=== PATIENT | male | born 1970 | race Caucasian/White ===

== ENCOUNTER 2023-01-14 14:02 | Emergency (ER) | payer OTHER, SELFPAY ==
[2023-01-14 14:09] VITALS: BP 163/98; PULSE 86; RESP 16; TEMP 35.8; O2SAT 98
--- NOTE | 2023-01-14 15:30 | ED.NURSE ---
Pt not in triage at time of room assignment. Unknown where patient went.
== END 2023-01-14 16:01 | disposition left against medical advice (07) ==
LOC: ED 15:57
DX: Z53.21 Procedure and treatment not carried out due to patient leaving prior to being seen by health care provider (principal)
CPT/HCPCS: 93005

== ENCOUNTER 2025-08-13 11:59 | Emergency (ER) | payer OTHER, SELFPAY ==
--- OUTSIDE RECORDS SUMMARY | 2025-08-13 12:06 | XMS_ITS | Encounter Summary ---
Author Organization [facility] Address [address] [place] [address]. [place] [address] Care Team Providers Care Broadloom Weaver Name Role Phone Hernandez Espinoza MD Unavailable Iker Stuart MD Unavailable Hernandez Espinoza MD Primary Care Provider Reason for Visit * Reason Onset Date Comments Refill Request 03/06/2024 Encounter Details Date Type Department Care Team (Late st Contact Info) Description 03/06/2024 MyC Refill [facility] [id number] [place] [address] Hernandez Espinoza MD [address] [place] [address] Refill Request Social History Tobacco Use Types Packs/Day Years Used Date Smoking Tobacco: Never Smokeless Tobacco: Never Alcohol Use Standard Drinks/Week Comments Yes 0 (1 standard drink = 0.6 oz pur e alcohol) occ Social Connection and Isolation Panel [NHANES] A nswer Date Recorded In a typical week, how many times do you talk on the phone with family, friends, or neighbors? Once a week 03/15/2023 How often do you get together with friends or re latives? Never 03/15/2023 How often do you attend congregation or methodist serv ices? Never 03/15/2023 Do you belong to any clubs o r organizations such as congregation groups, unions, fraternal or athletic groups, or school groups? No 03/15/2023 Attends Club or Organization Meetings Not on amie e 03/15/2023 Are you , , di vorced, , never , or living with a partner? 03/15/2023 AUDIT-C Answer Date Recorded Q1: How often do you have a drink containing alcohol? Never 03/15/2023 Q2: How many drinks containi ng alcohol do you have on a typical day when you are drinking? Patient does not drink Q3: How often do you have si x or more drinks on one occasion? Never 03/15/2023 Overall Financial Resource Strain (CARDIA) Answe r Date Recorded How hard is it for you to pa y for the very basics like food, housing, medical care, and heating? Not hard at all 03/15/2023 PHQ-2 Answer Date Recorded PHQ-2 Score 0 03/20/2023 [facility] Occupat ional [facility] - Occupational Stress Questionnaire Answer Date Recorded Do you feel stress - tense, restless, nervous, or anxious, or unable to sleep at night because your mind is troubled all the time - these days? Only a little 03/15/2023 Exercise Vital Sign Answer Date Recorde d On average, how many days pe r week do you engage in moderate to strenuous exercise (like a brisk walk)? 0 days 03/15/2023 On average, how many minutes do you engage in exercise at this level? 0 min 03/15/2023 Hunger Vital Sign Answer Date Recorded Within the past 12 months, y ou worried that your food would run out before you got the money to buy more. Never true 03/15/20 23 Within the past 12 months, t he food you bought just didn't last and you didn't have money to get more. Never true 03/15/2023 PRAPARE - Transportation Answer Date Re corded In the past 12 months, has l ack of transportation kept you from medical appointments or from getting medications? No 02/18 In the past 12 months, has l ack of transportation kept you from meetings, work, or from getting things needed for daily living? No 03/15/2023 Housing Stability Vital Sign Answer Indra e Recorded In the last 12 months, was t here a time when you were not able to pay the mortgage or rent on time? No 03/15/2023 Number of Places Lived in the Last Year Not on f ile 03/15/2023 In the last 12 months, was t here a time when you did not have a steady place to sleep or slept in a fdc (including now)? No 03/15/2023 Adolescent Education Answer Date Record ed Getting School Help Needed Not on file 08/11 Sex and Gender Information Value Date Recorded Sex Assigned at Not on file Legal Sex Male 8:38 AM CDT Gender Identity Not on file Sexual Orientation Not on file documented as of this encounter Miscellaneous Notes * Telephone Encounter - Tana Mendez RN - 03/07/2024 10:20 AM CDT Patient has requested the refill too soon. documented in this encounter Plan of Treatment Not on file documented as of this encounter Visit Diagnoses Diagnosis Primary insomnia Persistent disorder of initiating or maintaining sleep documented in this encounter Care Teams Broadloom Weaver Relationship Specialty [place] [address] [place] [address] PCP - General Family Medicine 01/18/23 [place] [address] [place] [address] Assigned PCP 02/02/22 [place] [address] [place] [address] Assigned Musculoskeletal Provider 10/14/22 04/09/24 documented as of this encounter
[2025-08-13 12:07] VITALS: BP 135/89; PULSE 87; RESP 18; TEMP 36.1; O2SAT 95; BMI 40.4
--- OUTSIDE RECORDS SUMMARY | 2025-08-13 12:07 | XMS_ITS | Encounter Summary ---
Author Organization [facility] Address [address] [place] [address]. [place] [address] Care Team Providers Care Quantitative Analyst Name Role Phone Clinic - [facility] Primary Ca re Provider Hernandez Espinoza MD Unavailable Laurie Little PA-C Unavailable Molly Bailey MD Unavailable Iker Stuart MD Unavailable Hernandez Espinoza MD Primary Care Provider Encounter Details Date Type Department Care Team (Late st Contact Info) Description 06/12/2022 [facility] [address] [address] Albert Martinez, [place] Social History Tobacco Use Types Packs/Day Years Used Date Smoking Tobacco: Never Smokeless Tobacco: Never Alcohol Use Standard Drinks/Week Comments Yes 0 (1 standard drink = 0.6 oz pur e alcohol) occ PHQ-2 Answer Date Recorded PHQ-2 Score 0 06/09/2022 Sex and Gender Information Value Date Recorded Sex Assigned at Not on file Legal Sex Male 8:38 AM CDT Gender Identity Not on file Sexual Orientation Not on file documented as of this encounter Plan of Treatment Not on file documented as of this encounter Visit Diagnoses Not on filedocumented in this encounter Care Teams Quantitative Analyst Relationship Specialty Start Date End Date Clinic - [facility] [address] [address] PCP - General 03/02/22 01/17/23 [place] [address] [place] [address] PCP - General Family Medicine 01/18/23 [place] [address] [place] [address] Assigned PCP 02/02/22 Laurie Little PA-C [address] [address] Assigned Sleep Provider 06/17/22 Molly Bailey MD ORTHOPAEDIC SURGERY [address] [place] [address] Assigned Musculoskeletal Provider 09/02/22 10/13/22 [place] [address] [place] [address] [address] Assigned Musculoskeletal Provider 10/14/22 04/09/24 documented as of this encounter
--- OUTSIDE RECORDS SUMMARY | 2025-08-13 12:07 | XMS_ITS | Encounter Summary ---
Author Organization [facility] Address [address] [place] [address] Care Team Providers Care Nature Photographer Name Role Phone Clinic - [facility] Primary Ca re Provider Hernandez Espinoza MD Unavailable Laurie Little PA-C Unavailable [phone] Molly Bailey MD Unavailable Iker Stuart MD Unavailable Hernandez Espinoza MD Primary Care Provider [phone] Encounter Details Date Type Department Care Team (Late st Contact Info) Description 08/29/2022 [facility] [address] [address] Chula Perry RN Social History Tobacco Use Types Packs/Day Years [...] on file Sexual Orientation Not on file COVID-19 Exposure Response Date Recorded In the last 10 days, have yo u been in contact with someone who was confirmed or suspected to have Coronavirus/COVID-19? No / Unsure 08/28/2022 7:15 AM CDT documented as of this encounter Plan of Treatment Not on file documented as of this encounter Visit Diagnoses Not on filedocumented in this encounter Care Teams Nature Photographer Relationship Specialty Start Date End Date Clinic - [facility] [address] [place], [place] [id number] PCP - General 03/02/22 01/17/23 [place] [address] [place] [address] PCP - General Family Medicine 01/18/23 [place] [address] [place] [address] Assigned PCP 02/02/22 Laurie Little PA-C [address] [address] Assigned Sleep Provider 06/17/22 Molly Bailey MD ORTHOPAEDIC SURGERY [address] [place] [address] Assigned Musculoskeletal Provider 09/02/22 10/13/22 [place] [address] [place] [address] [place] [address] Assigned Musculoskeletal Provider 10/14/22 04/09/24 documented as of this encounter
--- OUTSIDE RECORDS SUMMARY | 2025-08-13 12:07 | XMS_ITS | Encounter Summary ---
Author Organization [facility] Address [address] [place] [address] Care Team Providers Care Comprehensive Ophthalmologist Name Role Phone Hernandez Espinoza MD Unavailable Laurie Little PA-C Unavailable [phone] Iker Stuart MD Unavailable Hernandez Espinoza MD Primary Care Provider [phone] Encounter Details Date Type Department Care Team (Late st Contact Info) Description 11/06/2023 MyC Medical Advice [facility] [address] [place] [address] Anna Wallace Social History Tobacco Use Types Packs/Day Years [...] Never 03/15/2023 How often do you attend episcopalian or lutheran serv ices? Never 03/15/2023 Do you belong to any clubs o r organizations such as episcopalian groups, unions, fraternal or athletic groups, or [...] Answer Date Recorded PHQ-2 Score 0 03/20/2023 [facility] of Occupat ional [facility] - Occupational Stress Questionnaire Answer Date Recorded [...] place to sleep or slept in a detention (including now)? No 03/15/2023 Adolescent Education Answer [...] on filedocumented in this encounter Care Teams Comprehensive Ophthalmologist Relationship Specialty [place] [address] [address] [place] [address] PCP - General Family Medicine 01/18/23 [place] [address] [address] [place] [address] Assigned PCP 02/02/22 Laurie Little PA-C [address] [address] Assigned Sleep Provider 06/17/22 [place] [address] [place] [address] [place] [address] Assigned Musculoskeletal Provider 10/14/22 04/09/24 documented as of this encounter
--- OUTSIDE RECORDS SUMMARY | 2025-08-13 12:07 | XMS_ITS | Encounter Summary ---
Author Organization [facility] Address [address] [place] [address] Care Team Providers Care Embossing Machine Operator Name Role Phone Hernandez Espinoza MD Unavailable Laurie Little PA-C Unavailable [phone] Iker Stuart MD Unavailable Hernandez Espinoza MD Primary Care Provider [phone] Encounter Details Date Type Department Care Team (Late st Contact Info) Description 11/15/2023 MyC Medical Advice [address] [address] Fidelina Shay CMA Social History Tobacco Use Types Packs/Day Years [...] Never 03/15/2023 How often do you attend oriental orthodox or rastafari serv ices? Never 03/15/2023 Do you belong to any clubs o r organizations such as oriental orthodox groups, unions, fraternal or athletic groups, or [...] Answer Date Recorded PHQ-2 Score 0 03/20/2023 [facility] of Occupat ional Health - Occupational Stress Questionnaire Answer Date Recorded [...] place to sleep or slept in a halfway (including now)? No 03/15/2023 Adolescent Education Answer [...] on filedocumented in this encounter Care Teams Embossing Machine Operator Relationship Specialty Start [place] [address] [place] [address] PCP - General Family Medicine 01/18/23 [place] [address] [address] Assigned PCP 02/02/22 Laurie Little PA-C [address] [place] [address] Assigned Sleep Provider 06/17/22 [place] [address] [place] [address] [place] [address] Assigned Musculoskeletal Provider 10/14/22 04/09/24 documented as of this encounter
--- OUTSIDE RECORDS SUMMARY | 2025-08-13 12:07 | XMS_ITS | Clinical Summary ---
Author Organization [facility] Address [address] [place] [address] Care Team Providers Care Landmen Name Role Phone Hernandez Espinoza MD Primary Care Provider [phone] Allergies No known active allergies Medications blood sugar diagnostic (ONETOUCH ULTRA BLUE TEST STRIP) strip TEST ONCE D 9 Active aspirin (ECOTRIN) 81 mg enteric coated tablet Take 1 tablet by mouth once daily with a meal. 0 0 Active mupirocin 2 % cream APPLY OINTMENT TO THE AFFECTED AREA 3 TIMES PER DAY FOR 7-14 DAYS 4 Active metFORMIN 500 mg Extended-Releas e tabletIndicatio ns:Controlled type 2 diabetes mellitus without complication, without long-term current use of insulin (HC) Take 2 Tablets (1,000 mg) by mouth two times daily with meals. 360 Tablet 3 5 Active sildenafiL (pulm.hypertens ion) 20 mg tabletIndicatio ns:ED (erectile dysfunction) of organic origin Take 1-5 pills (start at lower dose and increase next time if needed) 30 mins prior to sexual intercourse 30 Tablet 1 5 Active traZODone 100 mg tabletIndicatio ns:Insomnia, idiopathic Take 0.5 Tablets (50 mg) by mouth at bedtime. 45 Tablet 5 Active Active Problems Problem Noted Date Diagnosed Date Controlled type 2 diabetes m ellitus without complication, without long-term current use of insulin 09/27/2020 Overview (09/27/2020): He was diagnosed with diabetes in 2014 and he started the Metformin then. Insomnia, idiopathic 09/27/2020 Overview (09/27/2020): He started Trazodone he thinks in 2019 and that works well. Encounters Date Type Department Care Team Description 08/13/2025 Nurse Triage [facility] [address] [facility] [place] [address] Clinic, [facility] Dizziness (Dizziness since Sunday) 08/10/2025 Nurse Triage [facility] Centralized Nurse Triage VotelRobin MD Dizziness from Last 3 Months Immunizations Immunization Administration Dates Next Due DT (Age < 7 years) 04/01/2006 Tdap 04/01/2012 Social History Tobacco Use Types Packs/Day Years Used Date Smoking Tobacco: Never Smokeless Tobacco: Never Tobacco Cessation:Counseling Given: Yes Alcohol Use Standard Drinks/Week Comments Not Currently 0 (1 standard drink = 0.6 oz pur e alcohol) PHQ-2 Answer Date Recorded PHQ-2 TOTAL SCORE 1 09/27/2020 Social Connections Answer Date Recorded Do you often feel lonely or isolated from those around you? 0 03/18/2025 Financial Resource Strain Answer Date R ecorded Difficulty of Paying Living Expenses 3 03/18/2025 Difficulty of Paying Living Expenses Not on file 03/18/2025 Food Insecurity Answer Date Recorded Do you worry your food will run out before you are able to buy more? 1 03/18/2025 Transportation Needs Answer Date Record ed Does lack of transportation keep you from medica l appointments? 1 03/18/2025 Does lack of transportation keep you from work, meetings or getting things that you need? 1 03/18/2025 Housing Stability Answer Date Recorded What is your housing situation today? 1 03/18/2025 Utilities Answer Date Recorded Do you have trouble paying f or utilities (for example, heat, electricity, water, phone)? 1 03/18/2025 Education Answer Date Recorded What is the highest level of school you have completed or the highest degree you have received? 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 Respiratory Rate - - Oxygen Saturation 96% 03/18/2025 3:04 PM CDT Inhaled Oxygen Concentration - - Weight 114.9 kg (253 lb 6.4 oz) 03/18/2025 3:04 PM CDT Height 170.2 cm (5' 7) 03/18/2025 3:04 PM CDT Body Mass Index 39.69 03/18/2025 3:04 PM CDT Plan of Treatment Health Maintenance Due Date Last Done Comments HIV for age 15-65 1985 Hepatitis C screening for age 18-79 02/26/1988 Hepatitis B series for 19+ ( 1 of 3 - 19+ 3-dose series) 1989 Pneumococcal series for age 50+ (1 of 2 - PCV) 1989 Colonoscopy through age 75 2015 Zoster (shingles) series for age 50+ (1 of 2) 02/26/2020 Depression screening for age 12+ 09/27/2021 09/27/20 20, 09/27/2020 Tetanus booster 04/01/2022 04/01/2012 COVID-19 vaccine series ( - 2024- season) 2025 02/20/2022 Influenza Vaccine (#1) 2025 BMI (ht and wt on same day) for age 18+ 03/18/2026 03/18/2025, 12/01/2020, 09/27/2020 Lipids for age 45-75 03/18/2030 03/18/2025, 09/27/20 20 RSV vaccine for adults or pr egnancy (1 - 1-dose 75+ series) 2045 Procedures Procedure Name Priority Date/Time Associated Diagnosis Comments LIPID PANEL W REFLEX MEASURED LDL Routine 03/18/2025 2:54 PM CDT Lipid screening from Last 3 Months or Most Recently Relevant to Health Maintenance Results * (ABNORMAL) LIPID PANEL W REFLEX MEASURED LDL (03/18/2025 2:54 PM CDT) CHOLESTEROL, TOTAL 183 <200 mg/dL [facility] HDL CHOLESTEROL 57 > OR = 40 mg/dL [facility] TRIGLYCERIDES 271(H) <150 mg/dL [facility] Comment: If a non-fasting specimen was collected, consider repeat triglyceride testing on a fasting specimen if clinically indicated. Omar et al. J. of Clin. Lipidol. 2015;9:129-169. LDL-CHOLESTEROL 90 mg/dL (calc) [facility] Comment: Reference range: <100 Desirable range <100 mg/dL for primary prevention; <70 mg/dL for patients with CHD or diabetic patients with > or = 2 CHD risk factors. LDL-C is now calculated using the Elmer-Oz calculation, which is a validated novel method providing better accuracy than the Friedewald equation in the estimation of LDL-C. Elmer SS et al. CINDI. 2013;310(19): 3652-7242 (http://education.[employer]/faq/SFK879) CHOL/HDLC RATIO 3.2 <5.0 (calc) [facility] NON HDL CHOLESTEROL 126 <130 mg/dL (calc) [facility] Comment: For patients with diabetes plus 1 major ASCVD risk factor, treating to a non-HDL-C goal of <100 mg/dL (LDL-C of <70 mg/dL) is considered a therapeutic option. Blood BLOOD SPECIMEN / Unknown 03/18/2025 2:54 PM CDT 03/18/2025 2:54 PM CDT us Robin Avalos MD CHEMISTRY Final Re sult [facility] [address] [place] [address], [facility] [address] [place] [address] from Last 3 Months or Most Recently Relevant to Health Maintenance Care Teams Landmen Relationship Specialty Start Date End Date Hernandez Espinoza MD PCP - General Family Practice 03/18/25
--- OUTSIDE RECORDS SUMMARY | 2025-08-13 12:07 | XMS_ITS | Encounter Summary ---
Author Organization [facility] Address [address] [place] [address] Care Team Providers Care Basic Sciences Dean Name Role Phone Hernandez Espinoza MD Unavailable Laurie Little PA-C Unavailable [phone] Iker Stuart MD Unavailable Hernandez Espinoza MD Primary Care Provider [phone] Encounter Details Date Type Department Care Team (Late st Contact Info) Description 11/06/[address] [facility]ology [facility] [address] [place] [address] Anna Wallace Social History Tobacco [...] Never 03/15/2023 How often do you attend jewish or buddhism serv ices? Never 03/15/2023 Do you belong to any clubs o r organizations such as jewish groups, unions, fraternal or athletic groups, or [...] Answer Date Recorded PHQ-2 Score 0 03/20/2023 [facility] of Occupat ional [facility] - Occupational Stress Questionnaire Answer Date Recorded [...] place to sleep or slept in a long term (including now)? No 03/15/2023 Adolescent Education Answer [...] on filedocumented in this encounter Care Teams Basic Sciences Dean Relationship Specialty Start [place] [address] [address] PCP - General Family Medicine 01/18/23 [place] [address] [address] [address] Assigned PCP 02/02/22 Laurie Little PA-C [address] [address] Assigned Sleep Provider 06/17/22 [place] [address] [place] [address] [place] [address] Assigned Musculoskeletal Provider 10/14/22 04/09/24 documented as of this encounter
--- OUTSIDE RECORDS SUMMARY | 2025-08-13 12:07 | XMS_ITS | Clinical Summary ---
Author Organization [place] Address [address] [place] [address] Care Team Providers Care Dairy Farm Supervisor Name Role Phone Hernandez Espinoza MD Unavailable Hernandez Espinoza MD Primary Care Provider [phone] Allergies No known active allergies Medications polyethylene glycol (GOLYTELY) 236 g suspensionIndic ations:Special screening for malignant neoplasms, colon Take as directed. Two days before your exam fill the first container with water. Cover and shake until mixed well. At 5:00pm drink one 8oz glass every 10-15 minutes until half (1/2) of the first container is empty. Store the remainder in the refrigerator. One day before your exam at 5:00pm drink the second half of the first container until it is gone. Before you go to bed mix the second container with water and put in refrigerator. Six hours before your check in time drink one 8oz glass every 10-15 minutes until half of container is empty. Discard the remainder of solution. 8000 mL 11/16/20 23 Active bisacodyl (DULCOLAX) 5 MG EC tabletIndicatio ns:Special screening for malignant neoplasms, colon Two days prior to exam take two (2) tablets at 4pm. One day prior to exam take two (2) tablets at 4pm 4 tablet 11/16/20 23 Active atorvastatin (LIPITOR) 10 MG tabletIndicatio ns:Controlled type 2 diabetes mellitus without complication, without long-term current use of insulin (H) Take 1 tablet (10 mg) by mouth daily. 90 tablet 3 09/09/20 24 Active sildenafil (REVATIO) 20 MG tabletIndicatio ns:Erectile dysfunction, unspecified erectile dysfunction type 40 mg once daily as needed 1 hour before sexual activity; may be taken up to 4 hours before sexual activity. Reduce to 20 mg once daily if side effects occur. May increase to a maximum dose of 100 mg once daily if there is incomplete response. 30 tablet 2 09/09/20 24 Active metFORMIN (GLUCOPHAGE XR) 500 MG 24 hr tabletIndicatio ns:Controlled type 2 diabetes mellitus without complication, without long-term current use of insulin (H) Take 2 tablets (1,000 mg) by mouth 2 times daily (with meals). 360 tablet 3 09/09/20 24 Active traZODone (DESYREL) 100 MG tabletIndicatio ns:Primary insomnia TAKE 1 TABLET BY MOUTH 30 MINUTES BEFORE BEDTIME 90 tablet 3 09/09/20 24 Active phentermine 15 MG capsuleIndicati ons:Class 3 severe obesity due to excess calories without serious comorbidity with body mass index (BMI) of 40.0 to 44.9 in adult (H) Take 1 capsule (15 mg) by mouth every morning. 30 capsule 2 09/10/20 24 Active semaglutide (OZEMPIC) 2 MG/3ML penIndications: Type 2 diabetes mellitus with hyperglycemia, without long-term current use of insulin (H) Inject 0.25 mg subcutaneously every 7 days. 3 mL 1 10/24/20 24 Active blood glucose (NO BRAND SPECIFIED) test stripIndication s:Type 2 diabetes mellitus with hyperglycemia, without long-term current use of insulin (H) Use to test blood sugar 1 time daily. 100 strip 2 11/10/20 24 Active Active Problems Problem Noted Date Diagnosed Date Chronic left shoulder pain 10/30/2022 Morbid obesity 03/02/2022 Controlled type 2 diabetes m ellitus without complication, without long-term current use of insulin 09/27/2020 Overview (06/09/2022): He was diagnosed with diabetes in 2014 and he started the Metformin then. Immunizations Immunization Administration Dates Next Due DT (PEDS <7y) 04/01/2006 TDAP (Adacel,Boostrix) 04/01/2012 Family History Medical History Relation Comments Diabetes Brother Sleep Apnea Brother Diabetes Father Heart Disease Father Sleep Apnea Sister Colon Cancer No family hx of Relation Status Comments Brother Father Mother Sister Social History Tobacco Use Types Packs/Day Years Used Date Smoking Tobacco: Never Smokeless Tobacco: Never Tobacco Cessation:Counseling Given: Not Answered Alcohol Use Standard Drinks/Week Comments Yes 0 (1 standard drink = 0.6 oz pur e alcohol) occ Social Connection and Isolation Panel [NHANES] A nswer Date Recorded Frequency of Communication with Friends and Fami ly Not on file 09/08/2024 How often do you get togethe r with friends or relatives? Patient declined 09/08/2024 Attends Jehovah'S Witness Services Not on file 09/08 Active Member of Clubs or Organizations Not on f ile 09/08/2024 Attends Club or Organization Meetings Not on amie e 09/08/2024 Marital Status Not on file 09/08/2024 AUDIT-C Answer Date Recorded Q1: How often do you have a drink containing alc ohol? Patient declined 04/23/2024 Q2: How many drinks containi ng alcohol do you have on a typical day when you are drinking? Patient declined 04/23/2024 Q3: How often do you have si x or more drinks on one occasion? Patient declined 04/23/2024 PHQ-2 Answer Date Recorded PHQ-2 Score 0 04/24/2024 [facility] - Occupational Stress Questionnaire Answer Date Recorded Do you feel stress - tense, restless, nervous, or anxious, or unable to sleep at night because your mind is troubled all the time - these days? Patient declined 09/08/2024 Exercise Vital Sign Answer Date Recorde d On average, how many days pe r week do you engage in moderate to strenuous exercise (like a brisk walk)? 3 days 09/08/2024 On average, how many minutes do you engage in exercise at this level? 50 min 09/08/2024 Adolescent Education Answer Date Record ed Getting School Help Needed Not on file 08/11 Food Insecurity Answer Date Recorded Within the past 12 months, d id you worry that your food would run out before you got money to buy more? No 1 Within the past 12 months, d id the food you bought just not last and you didn t have money to get more? Patient declined 09/08/2024 Housing Stability Answer Date Recorded Do you have housing? (Brooks montanez is defined as stable permanent housing and does not include staying outside in a car, in a tent, in an abandoned building, in an overnight mcc, or couch-surfing.) Patient declined 09/08/2024 Are you worried about losing your housing? Koki nt declined 09/08/2024 Financial Resource Strain Answer Date R ecorded Within the past 12 months, h ave you or your family members you live with been unable to get utilities (heat, electricity) when it was really needed? Patient declined 024 Transportation Needs Answer Date Record ed Within the past 12 months, h as lack of transportation kept you from medical appointments, getting your medicines, non-medical meetings or appointments, work, or from getting things that you need? Patient declined 09/08/2024 Interpersonal Safety Answer Date Record ed Do you feel physically and e motionally safe where you currently live? Yes 09/09/2024 Within the past 12 months, h ave you been hit, slapped, kicked or otherwise physically hurt by someone? No 09/09/2024 Within the past 12 months, h ave you been humiliated or emotionally abused in other ways by your partner or ex-partner? No 09/09/2024 Sex and Gender Information Value Date Recorded Sex Assigned at Not on file Legal Sex Male 8:38 AM CDT Gender Identity Not on file Sexual Orientation Not on file Last Filed Vital Signs Vital Sign Reading Time Taken Comments Blood Pressure 128/84 09/09/2024 7:12 AM CDT Pulse 76 09/09/2024 7:12 AM CDT Temperature 36.6 C (97.9 F) 09/09/2024 7:12 AM CDT Respiratory Rate 16 09/09/2024 7:12 AM CDT Oxygen Saturation 98% 09/09/2024 7:12 AM CDT Inhaled Oxygen Concentration - - Weight 118.4 kg (261 lb) 09/09/2024 7:12 AM CDT Height 170.2 cm (5' 7) 09/09/2024 7:12 AM CDT Body Mass Index 40.88 09/09/2024 7:12 AM CDT Plan of Treatment Health Maintenance Due Date Last Done Comments CT COLONOGRAPHY 1970 EYE EXAM 1970 FIT 1970 FLEX SIG 1970 sDNA (Cologuard) 1970 HEPATITIS B VACCINE (1 of 3 - 19+ 3-dose series) 1989 PNEUMOCOCCAL VACCINE 50+ YEARS (1 of 2 - PCV) 1989 ZOSTER VACCINE (1 of 2) 02/26/2020 DTAP/TDAP/TD VACCINE (2 - Td or Tdap) 04/01/2022 04/01/2012 PHQ-2 (once per calendar year) 2024 04/24/2024, 03/20/2023, 06/09/2022, Additional history exists A1C 12/10/2024 09/09/2024, 03/0 03/2024, 04/27/2023, Additional history exists BMP 01/21/2025 01/22/2024, 11/16/2022 LIPID 01/21/2025 01/22/2024, 11/16/2022 MICROALBUMIN 01/21/2025 01/22/2024, 11/16/2022 COVID-19 VACCINE ( - season) 2025 02/20/2022 INFLUENZA VACCINE (#1) 2025 ANNUAL REVIEW OF HM ORDERS 09/09/202509/09, 03/20/2023, 03/20/2023, Additional history exists DIABETIC FOOT EXAM 09/09/2025 09/09/2024, 03/20/2023 YEARLY PREVENTIVE VISIT 09/09/2025 09/09/2024, 03/20 COLONOSCOPY 12/04/2028 12/04/2023, 12/04/2023 COLORECTAL CANCER SCREENING 12/04/2028 ADVANCE CARE PLANNING 09/09/2029 09/09/2024, 023 HEPATITIS C SCREENING Completed 11/16/2022 HIV SCREENING Completed 11/16/2022 HPV VACCINE (No Doses Required) Completed MENINGITIS VACCINE Aged Out No longer eligible based on patient's age to complete this topic Procedures Procedure Name Priority Date/Time Associated Diagnosis Comments HEMOGLOBIN A1C Routine 09/09/2024 8:18 AM CDT Controlled type 2 diabetes mellitus without complication, without long-term current use of insulin (H) ALBUMIN AND CREATININE WITH RATIO RANDOM URINE QUANTITATIVE Routine 01/22/2024 8:29 AM CAREER SPECIALIST Controlled type 2 diabetes mellitus without complication, without long-term current use of insulin (H) LIPID REFLEX TO DIRECT LDL PANEL Routine 01/22/2024 8:29 AM CAREER SPECIALIST Controlled type 2 diabetes mellitus without complication, without long-term current use of insulin (H) BASIC METABOLIC PANEL Routine 01/22/2024 8:29 AM CAREER SPECIALIST Controlled type 2 diabetes mellitus without complication, without long-term current use of insulin (H) COLONOSCOPY Routine 12/04/2023 7:18 AM CAREER SPECIALIST HIV ANTIGEN ANTIBODY COMBO Routine 11/16/2022 1:11 PM CAREER SPECIALIST Screening for HIV (human immunodeficiency virus) HEPATITIS C SCREEN REFLEX TO HCV RNA QUANT AND GENOTYPE Routine 11/16/2022 1:11 PM CAREER SPECIALIST Need for hepatitis C screening test from Last 3 Months or Most Recently Relevant to Health Maintenance Results * (ABNORMAL) HEMOGLOBIN A1C (09/09/2024 8:18 AM CDT) Pathologist [facility] Estimated Average Glucose 160(H) <117 mg/dL 09/09/2024 8:26 AM CDT [facility] Hemoglobin A1C 7.2(H) 0.0 - 5.6 % 09/09/2024 8:26 AM CDT [facility] Comment: Normal <5.7% Prediabetes 5.7-6.4% Diabetes 6.5% or higher Note: Adopted from ADA consensus guidelines. Blood BLOOD SPECIMEN / Unknown Venipuncture / Unknown 09/09/2024 8:18 AM CDT 09/09/2024 8:18 AM CDT us Hernandez Espinoza MD LAB - BLOOD ORDERABLES Final Res ult LABORATORY [facility] [address] [facility] (no room number, 1st floor of clinic) [place] [address] * Albumin Random Urine Quantitative with Creat Ratio (01/22/2024 8:29 AM CAREER SPECIALIST) Creatinine Urine mg/dL 30.4 mg/dL 01/23/2024 5:21 AM CAREER SPECIALIST [facility] Comment:The reference ranges have not been established in urine creatinine. The results should be integrated into the clinical context for interpretation. Albumin Urine mg/L <12.0 mg/L 2023 5:21 AM CAREER SPECIALIST [facility] Comment:The reference ranges have not been established in urine albumin. The results should be integrated into the clinical context for interpretation. Albumin Urine mg/g Cr 01/23/2024 5:21 AM CAREER SPECIALIST [facility] Comment: Unable to calculate, urine albumin and/or urine creatinine is outside detectable limits. Microalbuminuria is defined as an albumin:creatinine ratio of 17 to 299 for males and 25 to 299 for females. A ratio of albumin:creatinine of 300 or higher is indicative of overt proteinuria. Due to biologic variability, positive results should be confirmed by a second, first-morning random or 24-hour timed urine specimen. If there is discrepancy, a third specimen is recommended. When 2 out of 3 results are in the microalbuminuria range, this is evidence for incipient nephropathy and warrants increased efforts at glucose control, blood pressure control, and institution of therapy with an rbyoiuyifgb-eokazbypnz-zizxxe (MOE) inhibitor (if the patient can tolerate it). Urine URINE SPECIMEN / Unknown Non-blood Collection / Unknown 01/22/2024 8:29 AM CAREER SPECIALIST 01/22/2024 9:13 AM CAREER SPECIALIST us Hernandez Espinoza MD LAB - URINE ORDERABLES Final Res ult [facility] [address] [facility], [address] [place] [address], [facility] [phone] * (ABNORMAL) Lipid panel reflex to direct LDL Non-fasting (01/22/2024 8:29 AM CAREER SPECIALIST) Cholesterol 161 <200 mg/dL 01/23/2024 4:09 AM CAREER SPECIALIST [facility] Triglycerides 156(H) <150 mg/dL 01/23/2024 4:09 AM CAREER SPECIALIST [facility] Direct Measure HDL 51 >=40 mg/dL 01/23/2024 4:09 AM CAREER SPECIALIST [facility] LDL Cholesterol Calculated 79 <=100 mg/dL 01/23/2024 4:09 AM CAREER SPECIALIST [facility] Non HDL Cholesterol 110 <130 mg/dL 01/23/2024 4:09 AM CAREER SPECIALIST [facility] Patient Fasting > 8hrs? Yes 01/23/2024 4:09 AM CAREER SPECIALIST [facility] Blood BLOOD SPECIMEN / Unknown Venipuncture / Unknown 01/22/2024 8:29 AM CAREER SPECIALIST 01/22/2024 8:32 AM CAREER SPECIALIST Narrative [facility] - 01/23/2024 4:09 AM CAREER SPECIALIST Cholesterol Desirable: <200 mg/dL Triglycerides Normal: Less than 150 mg/dL Borderline High: 150-199 mg/dL High: 200-499 mg/dL Very High: Greater than or equal to 500 mg/dL Direct Measure HDL Female: Greater than or equal to 50 mg/dL Male: Greater than or equal to 40 mg/dL LDL Cholesterol Desirable: <100mg/dL Above Desirable: 100-129 mg/dL Borderline High: 130-159 mg/dL High: 160-189 mg/dL Very High: >= 190 mg/dL Non HDL Cholesterol Desirable: 130 mg/dL Above Desirable: 130-159 mg/dL Borderline High: 160-189 mg/dL High: 190-219 mg/dL Very High: Greater than or equal to 220 mg/dL us Hernandez Espinoza MD LAB - BLOOD ORDERABLES Final Res ult [facility] [address] [facility], [address] [place] [address], [facility] [phone] * (ABNORMAL) BASIC METABOLIC PANEL (01/22/2024 8:29 AM CAREER SPECIALIST) Sodium 138 135 - 145 mmol/L 01/23/2024 4:42 AM CAREER SPECIALIST [facility] Comment:Reference intervals for this test were updated on 08/14/2023 to more accurately reflect our healthy population. There may be differences in the flagging of prior results with similar values performed with this method. Interpretation of those prior results can be made in the context of the updated reference intervals. Potassium 5.0 3.4 - 5.3 mmol/L 01/23/2024 4:42 AM CAREER SPECIALIST [facility] Chloride 105 98 - 107 mmol/L 01/23/2024 4:42 AM CAREER SPECIALIST [facility] Carbon Dioxide (CO2) 22 22 - 29 mmol/L 01/23/2024 4:42 AM CAREER SPECIALIST [facility] Anion Gap 11 7 - 15 mmol/L 01/23/2024 4:42 AM CAREER SPECIALIST [facility] Urea Nitrogen 16.1 6.0 - 20.0 mg/dL 01/23/2024 4:42 AM CAREER SPECIALIST [facility] Creatinine 1.00 0.67 - 1.17 mg/dL 01/23/2024 4:42 AM CAREER SPECIALIST [facility] GFR Estimate 90 >60 mL/min/1. 73m2 01/23/2024 4:42 AM CAREER SPECIALIST [facility] Calcium 9.5 8.6 - 10.0 mg/dL 01/23/2024 4:42 AM CAREER SPECIALIST [facility] Glucose 184(H) 70 - 99 mg/dL 01/23/2024 4:42 AM CAREER SPECIALIST [facility] Blood BLOOD SPECIMEN / Unknown Venipuncture / Unknown 01/22/2024 8:29 AM CAREER SPECIALIST 01/22/2024 8:32 AM CAREER SPECIALIST us Hernandez Espinoza MD LAB - BLOOD ORDERABLES Final Res ult [facility] [address] [facility], [address] [place] [address], [facility] [phone] * COLONOSCOPY (12/04/2023 7:18 AM CAREER SPECIALIST) COLONOSCOPY [facility] Patient Name: Jose M Bailey Procedure Date: 12/04/2023 7:18 AM Date of : 1970 Admit Type: Outpatient Age: 53 Gender: Male Attending MD: CHRISTEL SOSA MD, Total Sedation Time: 17_minutes continuous bedside 1:1 Instrument Name: 221 - Adult Colonoscope Procedure: Colonoscopy Indications: High risk colon cancer surveillance: Personal history of colonic polyps Providers: CHRISTEL SOSA MD (Doctor) Referring MD: RANDEE CAMPBELL (Referring MD) Medicines: Midazolam 4 mg IV, Fentanyl 200 micrograms IV Complications: No immediate complications. Procedure: Pre-Anesthesia Assessment: - Prior to the procedure, a History and Physical was performed, and patient medications and allergies were reviewed. The patient is competent. The risks and benefits of the procedure and the sedation options and risks were discussed with the patient. All questions were answered and informed consent was obtained. Patient identification and proposed procedure were verified in the procedure room. Mental Status Examination: alert and oriented. Airway Examination: normal oropharyngeal airway and neck mobility. Respiratory Examination: clear to auscultation. CV Examination: normal. Prophylactic Antibiotics: The patient does not require prophylactic antibiotics. Prior Anticoagulants: The patient has taken no anticoagulant or antiplatelet agents. ASA Grade Assessment: II - A patient with mild systemic disease. After reviewing the risks and benefits, the patient was deemed in satisfactory condition to undergo the procedure. The anesthesia plan was to use moderate sedation / analgesia (conscious sedation). Immediately prior to administration of medications, the patient was re-assessed for adequacy to receive sedatives. The heart rate, respiratory rate, oxygen saturations, blood pressure, adequacy of pulmonary ventilation, and response to care were monitored throughout the procedure. The physical status of the patient was re-assessed after the procedure. After obtaining informed consent, the colonoscope was passed under direct vision. Throughout the procedure, the patient's blood pressure, pulse, and oxygen saturations were monitored continuously. The Olympus Adult Colonoscope, Model # CF-H190L, Censitrac # [id number] was introduced through the anus and advanced to the cecum, identified by appendiceal orifice and ileocecal valve. The colonoscopy was performed without difficulty. The patient tolerated the procedure fairly well. The quality of the bowel preparation was good. The ileocecal valve, appendiceal orifice, and rectum were photographed. Findings: The perianal and digital rectal examinations were normal. The entire examined colon appeared normal on direct and retroflexion views. Impression: - The entire examined colon is normal on direct and retroflexion views. - No specimens collected. Recommendation: - Repeat colonoscopy in 5 years for surveillance. Procedure Code(s): --- Professional --- G0105, Colorectal cancer screening; colonoscopy on individual at high risk Diagnosis Code(s): --- Professional --- Z86.010, Personal history of colonic polyps CPT copyright 2021 [employer]. All rights reserved. The codes documented in this report are preliminary and upon chargemaster specialist review may be revised to meet current compliance requirements. Electronically signed by Christel Sosa MD __ CHRISTEL SOSA MD 12/04/2023 8:02:48 AM I was physically present for the entire viewing portion of the exam. CHRISTEL SOSA MD Number of Addenda: 0 Note Initiated On: 12/04/2023 7:18 AM Procedure Date: 12/04/2023 7:18:34 AM Scope Withdrawal Time: 0 hours 6 minutes 38 seconds Total Procedure Duration: 0 hours 15 minutes 38 seconds Estimated Blood Loss: Scope In: 7:43:19 AM Scope Out: 7:58:57 AM RADIOLOGY RESULTS 12/04/2023 7:18 AM CAREER SPECIALIST us Randee Campbell MD PROCEDURES Final Result RADIOLOGY RESULTS * HIV Antigen Antibody Combo (11/16/2022 1:11 PM CAREER SPECIALIST) HIV Antigen Antibody Combo Nonreactive Nonreactive 11/17/2022 10:35 AM CAREER SPECIALIST [facility] DO Comment:HIV-1 p24 Ag & HIV-1 /HIV-2 Ab Not Detected Blood BLOOD SPECIMEN / Unknown Venipuncture / Unknown 11/16/2022 1:11 PM CAREER SPECIALIST 11/16/2022 1:11 PM CAREER SPECIALIST us Hernandez Espinoza MD LAB - BLOOD ORDERABLES Final Res ult [facility]ENDO Specialty Core/Prot/Endo [address] [facility], [address] [phone] * Hepatitis C Screen Reflex to HCV RNA Quant and Genotype (11/16/2022 1:11 PM CAREER SPECIALIST) Hepatitis C Antibody Nonreactive Nonreactive 11/17/2022 11:48 AM CAREER SPECIALIST SPECIALTY CORE/PROT/EN DO Blood BLOOD SPECIMEN / Unknown Venipuncture / Unknown 11/16/2022 1:11 PM CAREER SPECIALIST 11/16/2022 1:11 PM CAREER SPECIALIST Narrative [facility] - 11/17/2022 11:48 AM CAREER SPECIALIST Assay performance characteristics have not been established for newborns, infants, and children. us Hernandez Espinoza MD LAB - BLOOD ORDERABLES Final Res ult [facility]Endo [address] [facility], [address] [phone] from Last 3 Months or Most Recently Relevant to Health Maintenance Care Teams Dairy Farm Supervisor Relationship Specialty [place] [address] [place] [address] PCP - General Family Medicine 01/18/23 [place] [address] [place] [address] Assigned PCP 02/02/22
--- OUTSIDE RECORDS SUMMARY | 2025-08-13 12:07 | XMS_ITS | Encounter Summary ---
Author Organization [place] Address [address] [place] [address]. [place] [address] Care Team Providers Care Cellar Supervisor Name Role Phone Clinic - [facility] Primary Ca re Provider Hernandez Espinoza MD Unavailable Laurie Little PA-C Unavailable Molly Bailey MD Unavailable Iker Stuart MD Unavailable Hernandez Espinoza MD Primary Care Provider [phone] Encounter Details Date Type Department Care Team (Late st Contact Info) Description 06/05/2022 [facility] [address] [address] Albert Martinez, [place] Social History [...] on filedocumented in this encounter Care Teams Cellar Supervisor Relationship Specialty Start Date End Date Clinic - [facility] [address] [address] PCP - General 03/02/22 01/17/23 [place] [address] [place] [address] PCP - General Family Medicine 01/18/23 [place] [address] [place] [address] Assigned PCP 02/02/22 Laurie Little PA-C [address] [address] Assigned Sleep Provider 06/17/22 Molly Bailey MD ORTHOPAEDIC SURGERY [address] [place] [address] Assigned Musculoskeletal Provider 09/02/22 10/13/22 [place] [address] [address] [address] Assigned Musculoskeletal Provider 10/14/22 04/09/24 documented as of this encounter
--- OUTSIDE RECORDS SUMMARY | 2025-08-13 12:07 | XMS_ITS | Encounter Summary ---
Author Organization [facility] Address [address] [place] [address]. [place] [address] Care Team Providers Care Cotton Puller Name Role Phone Hernandez Espinoza MD Unavailable Iker Stuart MD Unavailable Hernandez Espinoza MD Primary Care Provider [phone] Reason for Visit * Reason Comments Medication Refill Encounter Details Date Type Department Care Team (Late st Contact Info) Description 03/04/2024 Refill [facility] [id number] [place] [address] Annel Bermudez PA-C [address] [place] [address] Medication Refill Social History Tobacco Use Types Packs/Day Years [...] Never 03/15/2023 How often do you attend anglican or caodaism serv ices? Never 03/15/2023 Do you belong to any clubs o r organizations such as anglican groups, unions, fraternal or athletic groups, or [...] Answer Date Recorded PHQ-2 Score 0 03/20/2023 [facility] of Occupat ional [facility] - Occupational Stress Questionnaire Answer Date [...] place to sleep or slept in a residential (including now)? No 03/15/2023 Adolescent Education Answer Date Record ed Getting School Help Needed Not on file 08/11 Sex and Gender Information Value Date Recorded Sex Assigned at Not on file Legal Sex Male 8:38 AM CDT Gender Identity Not on file Sexual Orientation Not on file documented as of this encounter Miscellaneous Notes * Telephone Encounter - Tana Mendez RN - 03/05/2024 9:50 AM CDT Patient has requested the refill too soon. documented in this encounter Plan of Treatment Not on file documented as of this encounter Visit Diagnoses Diagnosis Controlled type 2 diabetes mellitus without complication, without long-term current use of insulin (H) documented in this encounter Care Teams Cotton Puller Relationship Specialty [place] [address] [place] [address] PCP - General Family Medicine 01/18/23 [place] [address] [place] [address] Assigned PCP 02/02/22 [place] [address] [place] [address] Assigned Musculoskeletal Provider 10/14/22 04/09/24 documented as of this encounter
--- OUTSIDE RECORDS SUMMARY | 2025-08-13 12:08 | XMS_ITS | Encounter Summary ---
Author Organization [place] Address [address] [place] [address]. [place] [address] Care Team Providers Care Automation Control Technician Name Role Phone Clinic - [facility] Primary Ca re Provider Hernandez Espinoza MD Unavailable Laurie Little PA-C Unavailable Molly Bailey MD Unavailable Iker Stuart MD Unavailable Hernandez Espinoza MD Primary Care Provider Encounter Details Date Type Department Care Team (Late st Contact Info) Description 05/09/2022 [facility] Center [address] [address] Albert Martinez, [place] Social History Tobacco Use Types Packs/Day Years Used Date Smoking Tobacco: Never Smokeless Tobacco: Never Alcohol Use Standard Drinks/Week Comments Yes 0 (1 standard drink = 0.6 oz pur e alcohol) occ PHQ-2 Answer Date Recorded PHQ-2 Score 0 03/02/2022 Sex and Gender Information Value Date Recorded Sex Assigned at Not on file Legal Sex Male 8:38 AM CDT Gender Identity Not on file Sexual Orientation Not on file documented as of this encounter Plan of Treatment Not on file documented as of this encounter Visit Diagnoses Not on filedocumented in this encounter Care Teams Automation Control Technician Relationship Specialty Start Date End Date Clinic - [facility] [address] [place] [address] PCP - General 03/02/22 01/17/23 [place] [address] [place] [address] PCP - General Family Medicine 01/18/23 [place] [address] [place] [address] Assigned PCP 02/02/22 Laurie Little PA-C [address] [address] Assigned Sleep Provider 06/17/22 Molly Bailey MD ORTHOPAEDIC SURGERY [address] [place] [address] Assigned Musculoskeletal Provider 09/02/22 10/13/22 [place] [address] [place] [address] [address] Assigned Musculoskeletal Provider 10/14/22 04/09/24 documented as of this encounter
--- OUTSIDE RECORDS SUMMARY | 2025-08-13 12:08 | XMS_ITS | Encounter Summary ---
Author Organization [place] Address [address] [place] [address]. [place] [address] Care Team Providers Care Excavating Contractor Name Role Phone Hernandez Espinoza MD Unavailable Laurie Little PA-C Unavailable [phone] Iker Stuart MD Unavailable Hernandez Espinoza MD Primary Care Provider [phone] Encounter Details Date Type Department Care Team (Late st Contact Info) Description 07/02/2023 [facility]ology Clinic [address] 4th [place] [address] Norbert Menezes Social History Tobacco Use Types Packs/Day Years [...] Never 03/15/2023 How often do you attend gnosticist or holiness serv ices? Never 03/15/2023 Do you belong to any clubs o r organizations such as gnosticist groups, unions, fraternal or athletic groups, or [...] Answer Date Recorded PHQ-2 Score 0 03/20/2023 [facility] of Occupat ional Health - Occupational [...] place to sleep or slept in a nursing home (including now)? No 03/15/2023 Sex and Gender Information Value Date Recorded Sex Assigned at Not on file Legal Sex Male 8:38 AM CDT Gender Identity Not on file Sexual Orientation Not on file documented as of this encounter Plan of Treatment Not on file documented as of this encounter Visit Diagnoses Not on filedocumented in this encounter Care Teams Excavating Contractor Relationship Specialty [place] [address] [place] [address] PCP - General Family Medicine 01/18/23 [place] [address] [place] [address] Assigned PCP 02/02/22 Laurie Little PA-C [address] [address] Assigned Sleep Provider 06/17/22 [place] [address] [place] [address] [address] Assigned Musculoskeletal Provider 10/14/22 04/09/24 documented as of this encounter
--- OUTSIDE RECORDS SUMMARY | 2025-08-13 12:08 | XMS_ITS | Encounter Summary ---
Author Organization [place] Address [address] [place] [address]. [place] [address] Care Team Providers Care Cross Tie Maker Name Role Phone Hernandez Espinoza MD Unavailable Laurie Little PA-C Unavailable [phone] Iker Stuart MD Unavailable Hernandez Espinoza MD Primary Care Provider [phone] Encounter Details Date Type Department Care Team (Late st Contact Info) Description 07/02/2023 [facility] Gastroenterology Clinic [address] 4th [place] [address] Norbert Menezes Social History Tobacco [...] Never 03/15/2023 How often do you attend mandaen or lutheran serv ices? Never 03/15/2023 Do you belong to any clubs o r organizations such as mandaen groups, unions, fraternal or athletic groups, or [...] Answer Date Recorded PHQ-2 Score 0 03/20/2023 [facility] Occupat ional Health - Occupational [...] place to sleep or slept in a correction (including now)? No 03/15/2023 Sex and Gender Information Value Date Recorded Sex Assigned at Not on file Legal Sex Male 8:38 AM CDT Gender Identity Not on file Sexual Orientation Not on file documented as of this encounter Plan of Treatment Not on file documented as of this encounter Visit Diagnoses Not on filedocumented in this encounter Care Teams Cross Tie Maker Relationship Specialty [place] [address] [place] [address] PCP - General Family Medicine 01/18/23 [place] [address] [place] [address] Assigned PCP 02/02/22 Laurie Little PA-C [address] [address] Assigned Sleep Provider 06/17/22 [place] [address] [place] [address] [address] Assigned Musculoskeletal Provider 10/14/22 04/09/24 documented as of this encounter
--- OUTSIDE RECORDS SUMMARY | 2025-08-13 12:08 | XMS_ITS | Encounter Summary ---
Author Organization [place] Address [address] [place] [address] Care Team Providers Care Game Attendant Name Role Phone Hernandez Espinoza MD Unavailable Hernandez Espinoza MD Primary Care Provider [phone] Encounter Details Date Type Department Care Team (Late st Contact Info) Description 05/11/2025 [facility] Medical Advice [address] [address] Alecia Roman, BALL HOLDER Social History Tobacco Use Types Packs/Day Years [...] friends or relatives? Patient declined 09/08/2024 Attends Baptism Services Not on file 09/08 Active Member [...] Answer Date Recorded PHQ-2 Score 0 04/24/2024 [facility] of Occupat ional [facility] - Occupational Stress Questionnaire Answer Date [...] Answer Date Recorded Do you have housing? (Carmenin g is defined as stable permanent housing and does not include staying outside in a car, in a tent, in an abandoned building, in an overnight fdc, or couch-surfing.) Patient declined 09/08/2024 Are you worried about losing your housing? Janette nt declined 09/08/2024 Financial Resource Strain Answer [...] on filedocumented in this encounter Care Teams Game Attendant Relationship Specialty [place] [address] [place] [address] PCP - General Family Medicine 01/18/23 [place] [address] [place] [address] Assigned PCP 02/02/22 documented as of this encounter
--- OUTSIDE RECORDS SUMMARY | 2025-08-13 12:08 | XMS_ITS | Encounter Summary ---
Author Organization [place] Address [address] [place] [address] Care Team Providers Care News Specialist Name Role Phone Hernandez Espinoza MD Unavailable Hernandez Espinoza MD Primary Care Provider [phone] Encounter Details Date Type Department Care Team (Late st Contact Info) Description 03/03/2025 [facility] Medical Advice [address] [address] Alecia Roman, OILER AND GREASER Social History Tobacco Use Types Packs/Day Years [...] friends or relatives? Patient declined 09/08/2024 Attends Yazidi Services Not on file 09/08 Active Member [...] Answer Date Recorded PHQ-2 Score 0 04/24/2024 [facility] of Occupat ional [facility] [...] in an abandoned building, in an overnight usp, or couch-surfing.) Patient declined 09/08/2024 Are you [...] on filedocumented in this encounter Care Teams News Specialist Relationship Specialty [place] [address] [place] [address] PCP - General Family Medicine 01/18/23 [place] [address] [place] [address] Assigned PCP 02/02/22 documented as of this encounter
--- OUTSIDE RECORDS SUMMARY | 2025-08-13 12:08 | XMS_ITS | Encounter Summary ---
Author Organization [place] Address [address] [place] [address]. [place] [address] Care Team Providers Care Dump Motorman Name Role Phone Clinic - [facility] Primary Ca re Provider Hernandez Espinoza MD Unavailable Laurie Little PA-C Unavailable Molly Bailey MD Unavailable Iker Stuart MD Unavailable Hernandez Espinoza MD Primary Care Provider [phone] Encounter Details Date Type Department Care Team (Late st Contact Info) Description 05/23/2022 [facility] Sleep [facility] [address] [address] Albert Martinez, [place] Social History [...] on filedocumented in this encounter Care Teams Dump Motorman Relationship Specialty Start Date End Date Clinic - [facility] [address] [address] PCP - General 03/02/22 01/17/23 [place] [address] [place] [address] PCP - General Family Medicine 01/18/23 [place] [address] [place] [address] Assigned PCP 02/02/22 Laurie Little PA-C [address] [address] Assigned Sleep Provider 06/17/22 Molly Bailey MD ORTHOPAEDIC SURGERY [address] [place] [address] Assigned Musculoskeletal Provider 09/02/22 10/13/22 [place] [address] [place] [address] [address] Assigned Musculoskeletal Provider 10/14/22 04/09/24 documented as of this encounter
--- OUTSIDE RECORDS SUMMARY | 2025-08-13 12:08 | XMS_ITS | Encounter Summary ---
Author Organization [place] Address [address] [place] [address]. [place] [address] Care Team Providers Care Nuclear Equipment Operator Name Role Phone Clinic - [facility] Primary Ca re Provider Hernandez Espinoza MD Unavailable Laurie Little PA-C Unavailable Molly Bailey MD Unavailable Iker Stuart MD Unavailable Hernandez Espinoza MD Primary Care Provider [phone] Encounter Details Date Type Department Care Team (Late st Contact Info) Description 05/01/2022 [facility] [address] [address] Albert Martinez, [place] Social History [...] on filedocumented in this encounter Care Teams Nuclear Equipment Operator Relationship Specialty Start Date End Date Clinic - [facility] [address] [address] PCP - General 03/02/22 01/17/23 [place] [address] [place] [address] PCP - General Family Medicine 01/18/23 [place] [address] [place] [address] Assigned PCP 02/02/22 Laurie Little PA-C [address] [address] Assigned Sleep Provider 06/17/22 Molly Bailey MD ORTHOPAEDIC SURGERY [address] [place] [address] Assigned Musculoskeletal Provider 09/02/22 10/13/22 [place] [address] [address] Assigned Musculoskeletal Provider 10/14/22 04/09/24 documented as of this encounter
--- OUTSIDE RECORDS SUMMARY | 2025-08-13 12:08 | XMS_ITS | Encounter Summary ---
Author Organization [place] Address [address] [place] [address]. [place] [address] Care Team Providers Care Machine Tack Puller Name Role Phone Hernandez Espinoza MD Unavailable Laurie Little PA-C Unavailable [phone] Iker Stuart MD Unavailable Hernandez Espinoza MD Primary Care Provider [phone] Encounter Details Date Type Department Care Team (Late st Contact Info) Description 07/02/2023 [facility]astro[facility]ology Clinic [address] 4th [place] [address] Norbert Menezes Social History Tobacco [...] Never 03/15/2023 How often do you attend protestant or mormonism serv ices? Never 03/15/2023 Do you belong to any clubs o r organizations such as protestant groups, unions, fraternal or athletic groups, or [...] Answer Date Recorded PHQ-2 Score 0 03/20/2023 [facility] Occupat ional Health - Occupational [...] place to sleep or slept in a fpc (including now)? No 03/15/2023 Sex and Gender Information Value Date Recorded Sex Assigned at Not on file Legal Sex Male 8:38 AM CDT Gender Identity Not on file Sexual Orientation Not on file documented as of this encounter Plan of Treatment Not on file documented as of this encounter Visit Diagnoses Not on filedocumented in this encounter Care Teams Machine Tack Puller Relationship Specialty Start [place] [address] [place] [address] PCP - General Family Medicine 01/18/23 [place] [address] [place] [address] Assigned PCP 02/02/22 Laurie Little PA-C [address] [address] Assigned Sleep Provider 06/17/22 [place] [address] [place] [address] [address] Assigned Musculoskeletal Provider 10/14/22 04/09/24 documented as of this encounter
--- OUTSIDE RECORDS SUMMARY | 2025-08-13 12:08 | XMS_ITS | Encounter Summary ---
Author Organization [place] Address [address] [place] [address]. [place] [address] Care Team Providers Care Mailer Apprentice Name Role Phone Clinic - [facility] Primary Ca re Provider Hernandez Espinoza MD Unavailable Laurie Little PA-C Unavailable [phone] Molly Bailey MD Unavailable Iker Stuart MD Unavailable Hernandez Espinoza MD Primary Care Provider [phone] Encounter Details Date Type Department Care Team (Late st Contact Info) Description 05/09/2022 [facility] Sleep [facility] [place] [address] [place] [address] Laurie Little PA-C [address] [address] Social History Tobacco Use Types Packs/Day Years [...] on filedocumented in this encounter Care Teams Mailer Apprentice Relationship Specialty Start Date End Date Clinic - [facility] [address] [address] PCP - General 03/02/22 01/17/23 [place] [address] [place] [address] PCP - General Family Medicine 01/18/23 [place] [address] [place] [address] Assigned PCP 02/02/22 Laurie Little PA-C [address] [place] [address] Assigned Sleep Provider 06/17/22 Molly Bailey MD ORTHOPAEDIC SURGERY [facility] [address] [address] Assigned Musculoskeletal Provider 09/02/22 10/13/22 [place] [address] [place] [address] [place] [address] Assigned Musculoskeletal Provider 10/14/22 04/09/24 documented as of this encounter
--- OUTSIDE RECORDS SUMMARY | 2025-08-13 12:09 | XMS_ITS | Encounter Summary ---
Author Organization [place] Address [address] [place] [address]. [place] [address] Care Team Providers Care Harm Reduction Worker Name Role Phone Clinic - [facility] Primary Ca re Provider Hernandez Espinoza MD Unavailable Laurie Little PA-C Unavailable [phone] Iker Stuart MD Unavailable Hernandez Espinoza MD Primary Care Provider [phone] Encounter Details Date Type Department Care Team (Late st Contact Info) Description 11/20/2022 [facility] [address] [place] [address] [place] [address] [place] [address] Social History Tobacco Use Types Packs/Day Years [...] suspected to have Coronavirus/COVID-19? No / Unsure 11/16/2022 1:04 PM CAPITAL MARKETS SPECIALIST documented as of this encounter Miscellaneous Notes * Telephone Encounter - Angeles Mitchell RN - 11/20/2022 4:27 PM CST Both medication looks like they have available refills. Call to pharmacy. Scheduled to be filled tomorrow at 10 am. Call to [facility] of above and pharmacy said if he wants filled today he should call them. Alsoadvised patient he can request medication to be filled from pharmacy as they have active Rx from 02/2022 with a one year supply. Angeles Mitchell R.N. TAL MARKETS SPECIALIST * Telephone Encounter - Michelle Morocho - 11/20/2022 8:45 AM CST Says 3 refills remaining as of last week but is unable to get refill but it can't be refilled through mychart at this time. trazadone and metformin Reason for Call: Medication or medication refill: Do you use a [facility]? Name of the pharmacy and phone number for the current request: [facility] Name of the medication requested: trazodone and metformin Other request: is out. For some reason he is unable to refill them through mychart, but it says he has three refills remaining Can we leave a detailed message on this number? YES Phone number patient can be reached at: Cell number on file: Telephone Information: Best Time: anytime before 11 or after 2:00 Call taken on 11/20/2022 at 8:46 AM by Michelle Morocho TAL MARKETS SPECIALIST documented in this encounter Plan of Treatment Not on file documented as of this encounter Visit Diagnoses Diagnosis Primary insomnia Persistent disorder of initiating or maintaining sleep Type 2 diabetes mellitus without complication, with long-term current use of insulin (H) documented in this encounter Care Teams Harm Reduction Worker Relationship Specialty Start Date End Date Clinic - [facility] [address] [place] [address] PCP - General 03/02/22 01/17/23 [place] [address] [place] [address] PCP - General Family Medicine 01/18/23 [place] [address] [place] [address] Assigned PCP 02/02/22 Laurie Little PA-C [address] [address] Assigned Sleep Provider 06/17/22 [place] [address] [place] [address] [place] [address] Assigned Musculoskeletal Provider 10/14/22 04/09/24 documented as of this encounter
--- OUTSIDE RECORDS SUMMARY | 2025-08-13 12:09 | XMS_ITS | Encounter Summary ---
Author Organization [place] Address [address] [place] [address] Care Team Providers Care Supervisor Files Name Role Phone Hernandez Espinoza MD Unavailable Laurie Little PA-C Unavailable [phone] Iker Stuart MD Unavailable Hernandez Espinoza MD Primary Care Provider [phone] Encounter Details Date Type Department Care Team (Late st Contact Info) Description 06/28/2023 [facility] Medical Advice [facility] Gastroenterology Clinic [address] 4th [place] [address] Anna Wallace Social History Tobacco [...] Never 03/15/2023 How often do you attend uatsdin or protestant serv ices? Never 03/15/2023 Do you belong to any clubs o r organizations such as uatsdin groups, unions, fraternal or athletic groups, or [...] Answer Date Recorded PHQ-2 Score 0 03/20/2023 [facility] of Occupat ional [facility] - Occupational Stress Questionnaire Answer Date [...] a long term (including now)? No 03/15/2023 Sex and Gender Information Value Date Recorded Sex Assigned at Not on file Legal Sex Male 8:38 AM CDT Gender Identity Not on file Sexual Orientation Not on file documented as of this encounter Plan of Treatment Not on file documented as of this encounter Visit Diagnoses Not on filedocumented in this encounter Care Teams Supervisor Files Relationship Specialty Start [place] [address] [place] [address] PCP - General Family Medicine 01/18/23 [place] [address] [place] [address] Assigned PCP 02/02/22 Laurie Little PA-C [address] [place] [address] Assigned Sleep Provider 06/17/22 [place] [address] [place] [address] [place] [address] Assigned Musculoskeletal Provider 10/14/22 04/09/24 documented as of this encounter
--- NOTE | 2025-08-13 12:40 | ED.GENADULT ---
HPI - General Adult General Time Seen by Provider: 12:40 Date Seen: 08/13/25 Chief complaint: Dizziness/Vertigo Stated complaint: Dizziness Time Seen by Provider: 08/13/25 12:18 Source: patient Mode of arrival: ambulatory Limitations: no limitations History of Present Illness HPI narrative: Jose M is a 55-year-old male with diabetes mellitus type 2 currently on metformin, obstructive sleep apnea on CPAP, trazodone to help him sleep at night presents emerged department via private car and self with dizziness. Patient states that on Sunday he woke up in the morning and when he got up sat at the side of the bed he had sensation of the room was spinning. This resolved after a few minutes, he then went to work at [employer], did not have much for recurrence, when he finished he did have a few episodes of similar symptoms when ambulating. This again occurred on Sunday morning, specially when he turned his head to the left. He had an episode today He stood up and had a sensation of falling to one side which then resolved. He went saw [facility], at his vitals taken. Blood pressure is mildly elevated. Was told they come here for further evaluation. He denies any recent is illness, he just feels that something is not right in his head, some frontal pressure. No history of this in the past. No visual changes, trouble speaking or swallowing, no focal weakness, paresthesias or tingling. Patient walked perfectly fine coming into the emergency department. Related Data Home Medications ?Medication ?Instructions ?Recorded ?Confirmed metformin 1,000 mg tablet,extended 1,000 mg PO BID 01/14/23 08/13/25 release 24hr (osmotic) trazodone 50 mg tablet 25 mg PO QHS PRN 01/14/23 08/13/25 Previous Rx's ?Medication ?Instructions ?Recorded meclizine 25 mg tablet 25 mg PO QID PRN #14 tabs 08/13/25 Allergies Allergy/AdvReac Type Severity Reaction Status Date / Time No Known Drug Allergies Allergy Verified 08/13/25 12:16 Review of Systems Status of ROS: Reports: 10 or more systems reviewed and unremarkable except as noted in History and below Exam Narrative: Exam Narrative: General: No obvious distress sitting comfortably HEENT: Mild inferior cloudy effusions bilaterally, Pupils equal react to light, extraocular muscles intact Nontender the frontal and maxillary sinuses Lungs: Clear to auscultation bilaterally Heart: Normal sinus rhythm S1-S2 Muscle skeletal: +5 strength upper lower extremities Neuro: Angeline-Hallpike elicit no vertical or or horizontal nystagmus GCS 15, no focal deficits Const: Vital Signs, click to edit/add: Vital Signs - 24 hr 08/13/25 12:07 Temperature 96.9 F L Pulse Rate [Pulse Oximeter] 87 Respiratory Rate 18 Blood Pressure [Ri ght Upper Arm] 135/89 Pulse Oximetry 95 Oxygen Delivery Me thod Room Air Course Course ED Course: 12:30 PM: aidet performed. Vitals are normal at this time, workup will include CBC, TSH, point of care troponin, magnesium, CMP, 25 mg meclizine tablet, scopolamine patch, suspect positional more peripheral vertigo, may consider imaging, differential includes life-threatening CVA, other consideration BPPV, labyrinthitis, Meniere disease, vestibular neuritis, migraine, MS, otitis media, viral syndrome as well as other etiologies. Patient is asymptomatic at this time. ED disposition pending clinical course. Reevaluation(s) Time of Reevaluation #1: 15:08 Reevaluation #1: ECG showed a normal sinus rhythm, bpm 91, no acute ST changes, troponin point of care was 0.00, CBC showed no leukocytosis, no anemia, magnesium within normal limits, metabolic panel showed normal electrolytes renal function, mildly elevated blood sugar 167, mild elevation of AST and ALT, CT head without IV contrast showed no acute intracranial abnormality, patient was given the above care and was ambulating to and from the bathroom with no symptoms. Discussed watching at this time, this patient is doing well clinically no further imaging be obtained, and close follow-up with primary care provider which will be arranged, short prescription of meclizine 25 mg tablets be taken every 6 hours p.r.n. for any return of dizziness, scopolamine patch can be left on for 72 hours, reasons return were given. Vital Signs Vital signs: Initial Vital Signs Temperature 96.9 F L 08/13/25 12:07 Temperature Source Temporal Artery Scan 08/13/25 12:07 Pulse Rate 87 08/13/25 12:07 Respiratory Rate 18 08/13/25 12:07 Blood Pressure 135/89 08/13/25 12:07 Blood Pressure Mean 104 08/13/25 12:07 Blood Pressure Position Sitting 08/13/25 12:07 Pulse Oximetry 95 08/13/25 12:07 Oxygen Delivery Method Room Air 08/13/25 12:07 Vital Signs Temperature 96.9 F L 08/13/25 12:07 Pulse Rate 87 08/13/25 12:07 Respiratory Rate 18 08/13/25 12:07 Blood Pressure 135/89 08/13/25 12:07 Pulse Oximetry 95 08/13/25 12:07 Oxygen Delivery Method Room Air 08/13/25 12:07 Temperature 96.9 F L 08/13/25 12:07 Pulse Rate 87 08/13/25 12:07 Respiratory Rate 18 08/13/25 12:07 Blood Pressure 135/89 08/13/25 12:07 Pulse Oximetry 95 08/13/25 12:07 Oxygen Delivery Method Room Air 08/13/25 12:07 Medications Administered Medications: Generic Name Dose Route Start Last Admin Trade Name Freq PRN Reason Stop Dose Admin Scopolamine 1 patch 08/13/25 12:45 08/13/25 12:50 Scopolamine 1 Mg/3 Day Patch TRANSDERMA 1 patch Q72H ABDIRASHID Administration Discontinued Medications Generic Name Dose Route Start Last Admin Trade Name Freq PRN Reason Stop Dose Admin Meclizine HCl 25 mg 08/13/25 12:38 08/13/25 12:50 Meclizine Hcl 25 Mg Tablet PO 08/13/25 12:39 25 mg ONCE ONE Administration Medical Decision Making Lab Data Labs: Lab Results 08/13/25 08/13/25 Range/Units 12:40 12:59 WBC 5.47 (4.50-11.00) K/uL RBC 5.08 (4.30-5.90) m/uL Hgb 15.0 (13.5-17.5) gm/dL Hct 42.4 (37.0-53.0) % MCV 84 (80-100) fL MCH 30 (26-34) pg MCHC 35 (32-36) gm/dL RDW Coeff of Simon 11.8 (11.5-15.5) % Plt Count 158 (140-440) K/uL Neut % (Auto) 63.0 (42.0-72.0) % Lymph % (Auto) 21.8 (20-44) % [place] % (Auto) 11.2 H (0.0-11.0) % Eos % (Auto) 3.1 (0.0-7.0) % Baso % (Auto) 0.7 (0.0-3.0) % Neut # (Auto) 3.45 (1.7-7.0) K/uL Lymph # (Auto) 1.19 (0.90-2.90) K/uL [place] # (Auto) 0.60 (0.00-0.90) K/UL Eos # (Auto) 0.17 (0.00-0.50) K/uL Baso # (Auto) 0.04 (0.00-0.30) K/uL Abs Immat Gran (auto) 0.01 (0.00-0.30) K/uL Imm/Tot Granulo (auto) 0.2 % Sodium 136 (135-149) mmol/L Potassium 4.6 (3.6-5.1) mmol/L Chloride 103 (96-114) mmol/L Carbon Dioxide 24 (20-32) mmol/L Anion Gap 9 (7-15) mEq/L BUN 21 (7-30) mg/dL Creatinine 0.9 (0.5-1.5) mg/dL Estimated Creat Clear 83.69 Estimated GFR 101 ml/min Glucose 167 H (60-115) mg/dL Calcium 9.5 (8.4-10.6) mg/dL Magnesium 1.6 (1.5-2.6) mg/dL Total Bilirubin 0.8 (0.1-1.5) mg/dL AST 38 H (12-35) U/L ALT 62 H (4-50) U/L Alkaline Phosphatase 41 (40-150) U/L Total Protein 6.4 (6.0-8.3) g/dL Albumin 4.4 (3.3-5.0) g/dL TSH 1.200 (0.270-4.20) uIU/mL POC Troponin I 0.00 L (0.01-0.04) ng/ml Discharge Plan Discharge Clinical Impression: Dizziness Patient Disposition: Home, Self-Care Condition: Improved Instructions: Vertigo (ED), Dizziness (ED) Additional Instructions: Scopolamine patch, to wear over the next 3 days, meclizine 25 mg capsule to be taken every 6 hours p.r.n. if any return of dizziness, to follow-up with primary care provider here in [facility] as scheduled. Prescriptions: New meclizine 25 mg tablet 25 mg PO QID PRNQty: 14 0RF No Action metformin 1,000 mg tablet extended release 24 hr 1,000 mg PO BID trazodone 50 mg tablet 25 mg PO QHS PRN Follow Up/Referrals: Provider,Not a Local [Primary Care Provider, Family Practice] Stand Alone Forms: [employer] Info Instructions
[2025-08-13] MEDS: SCOPOLAMINE 1 MG/3 DAY PATCH 1 PATCH TRANSDERMA (12:50)
[2025-08-13] MEDS: MECLIZINE HCL 25 MG TABLET PO (12:50)
--- NOTE | 2025-08-13 12:53 | CRLHL7_ITS ---
For Patients: As a result of the Cures Act, medical imaging exams and procedure reports are released immediately into your electronic medical record. You may view this report before your referring provider. If you have questions, please contact your health care provider. INDICATION: Intermittent dizziness. TECHNIQUE: CT head without contrast. COMPARISON: None. FINDINGS: Brain: No intra or extra-axial fluid collection, mass or edema. Minimal periventricular white matter hypoattenuation, likely chronic small vessel ischemic disease. No hydrocephalus. Other: No displaced calvarial fracture. Visualized portions of the orbits, mastoids and paranasal sinuses are unremarkable. IMPRESSION: No acute intracranial abnormality. Please note that all CT scans at this facility use dose modulation, iterative reconstruction, and/or weight-based dosing when appropriate to reduce radiation dose to as low as reasonably achievable. Dictated by Jasper Camarillo MD @ 08/13/2025 1:37:17 PM (Electronically Signed)
[2025-08-13 13:07] LABS: Hematocrit* 42.4 % (37.0-53.0); Hemoglobin* 15.0 gm/dL (13.5-17.5); Immature Granulocytes Abs Auto 0.01 K/uL (0.00-0.30); Immature Granulocytes Pct Auto 0.2 %; Lymphocytes Absolute Auto 1.19 K/uL (0.90-2.90); Mean Corpuscular HGB Conc 35 gm/dL (32-36); Mean Corpuscular Hemoglobin 30 pg (26-34); Mean Corpuscular Volume 84 fL (80-100); RDW Coefficient of Variation % 11.8 % (11.5-15.5); Red Blood Count* 5.08 m/uL (4.30-5.90); White Blood Count* 5.47 K/uL (4.50-11.00)
[2025-08-13 13:12] LABS: Slide Review Reflex No
[2025-08-13 13:17] LABS: Troponin, Point-of-Care* 0.00 ng/ml (0.01-0.04)
[2025-08-13 13:20] LABS: Albumin* 4.4 g/dL (3.3-5.0); Chloride* 103 mmol/L (96-114)
[2025-08-13 13:21] LABS: Potassium* 4.6 mmol/L (3.6-5.1); Sodium* 136 mmol/L (135-149)
[2025-08-13 13:23] LABS: Anion Gap 9 mEq/L (7-15); Blood Urea Nitrogen* 21 mg/dL (7-30); Carbon Dioxide* 24 mmol/L (20-32); Creatinine* 0.9 mg/dL (0.5-1.5); Est. Creatinine Clearance* 83.69; Estimated Glomerular Filt Rate 101 ml/min
[2025-08-13 13:24] LABS: Alanine Aminotransferase* 62 U/L (4-50); Alkaline Phosphatase* 41 U/L (40-150); Aspartate Amino Transferase* 38 U/L (12-35); Bilirubin Total* 0.8 mg/dL (0.1-1.5); Calcium* 9.5 mg/dL (8.4-10.6); Glucose* 167 mg/dL (60-115); Total Protein* 6.4 g/dL (6.0-8.3)
== END 2025-08-13 15:10 | disposition home or self-care (01) ==
PROVIDERS: Emergency Provider Student in an Organized Health Care Education/Training Program
DX: R42 Dizziness and giddiness (principal)
CPT/HCPCS: 36415; 70450; 80053; 83735; 84443; 84484; 85025; 93005; 99283; 99284; A9270